=== PATIENT | female | born 1970 ===

== ENCOUNTER 2018-02-01 11:46 | Observation (INO) | payer OTHER, SELFPAY ==
[2018-02-01 12:30] VITALS: O2SAT 100
[2018-02-01 14:25] LABS: VENOUS BLOOD GAS BASE EXCESS 1.6 mmol/L (0.0-2.0); VENOUS BLOOD GAS PCO2 43 mmHg (40-60); VENOUS BLOOD GAS PO2 14 mm/Hg (30-55)
[2018-02-01 14:30] LABS: BASO # 0.1 K/uL (0.0-0.2); BASO % 1.1 % (0.0-2.0); EOS % 0.5 % (0.0-4.0); HEMOGLOBIN 8.3 g/dL (12.0-16.0); LYMPH # 1.9 K/uL (1.0-4.3); LYMPH % 30.6 % (20.0-40.0); MEAN CELL VOLUME 56.4 fl (81.0-99.0); MEAN CORPUSCULAR HEMOGLOBIN 17.4 pg (27.0-31.0); MEAN CORPUSCULAR HGB CONC 30.9 g/dL (33.0-37.0); MEAN PLATELET VOLUME 8.7 fl (7.2-11.7); MONO # 0.3 K/uL (0.0-0.8); MONO % 5.3 % (0.0-10.0); NEUT # 3.9 K/uL (1.8-7.0); NEUT % 62.5 % (50.0-75.0); NRBC % 0.1 % (0.0-0.0); RBC 4.78 Mil/uL (3.80-5.20); RED CELL DISTRIBUTION WIDTH 21.3 % (11.5-14.5); WHITE BLOOD COUNT 6.2 K/uL (4.8-10.8)
[2018-02-01 14:44] LABS: BLOOD UREA NITROGEN 9 mg/dl (7-17); CALCIUM 9.1 mg/dL (8.4-10.2); GFR NON-AFRICAN AMERICAN > 60
--- NOTE | 2018-02-01 14:44 | ED PDOC ---
HPI: General Adult Time Seen by Provider: 02/01/18 13:26 Chief Complaint (Nursing): Abnormal Labs Chief Complaint (Provider): Abnormal Labs History Per: Patient History/Exam Limitations: no limitations Onset/Duration Of Symptoms: Hrs Current Symptoms Are (Timing): Still Present Additional Complaint(s): 47 y/o female with no significant PMHx presents to the ED for evaluation of abnormal labs. Patient reports of seeing her PMD for multiple episodes of dizziness. Patient states she had labs drawn and was called in for being Anemic. At this time, patient is complaining of dizziness and weakness. Denies perineum bleeding or any other source, anemia or a blood transfusion in the past and increased shortness of breath with extended exertion. PMD: Dr. Mami Kauffman ([facility]) LN 01/18/2018 (Normal Period. No irregularity) Past Medical History Reviewed: Historical Data, Nursing Documentation, Vital Signs Vital Signs: Last Vital Signs Temp 97.9 F 02/01/18 18:51 Pulse 77 02/01/18 18:51 Resp 18 02/01/18 18:51 BP 129/79 02/01/18 18:51 Pulse Ox 100 02/01/18 17:51 - Medical History PMH: No Chronic Diseases Denies: Chronic Kidney Disease - Surgical History Surgical History: No Surg Hx - Family History Family History: States: Unknown Family Hx - Home Medications Home Medications: Ambulatory Orders Medication Instructions Recorded No Known Home Med 02/01/18 - Allergies Allergies/Adverse Reactions: Allergies Allergy/AdvReac Type Severity Reaction Status Date / Time No Known Allergies Allergy Verified 02/01/18 12:26 Review of Systems ROS Statement: Except As Marked, All Systems Reviewed And Found Negative Constitutional: Positive for: Other (Abnormal Lab Evaluation) Neurological: Positive for: Weakness, Dizziness Physical Exam - Reviewed Nursing Documentation Reviewed: Yes Vital Signs Reviewed: Yes - Physical Exam Appears: Positive for: Well, No Acute Distress (on stretcher) Skin: Negative for: Cyanosis Eye Exam: Positive for: Other (Conjunctival Pallor) ENT: Positive for: Other (Lips pale) Neck: Positive for: Normal (No lymphadenopathy) Cardiovascular/Chest: Positive for: Regular Rate, Rhythm. Negative for: Murmur , Tachycardia Respiratory: Positive for: Normal Breath Sounds. Negative for: Respiratory Distress Pulses-Radial (L): 2+ Pulses-Radial (R): 2+ Gastrointestinal/Abdominal: Positive for: Normal Exam, Soft. Negative for: Tenderness Extremity: Positive for: Normal ROM. Negative for: Pedal Edema Neurologic/Psych: Positive for: Alert, Oriented (x3) - Laboratory Results Result Diagrams: 02/01/18 13:15 02/01/18 13:15 - ECG O2 Sat by Pulse Oximetry: 100 (RA) Pulse Ox Interpretation: Normal Medical Decision Making Medical Decision Making: Time: 1315 A/P: Continue workup for anemia. -- If levels are dropping compared to previous workup will start transfusion and will admit for continuing labs. -- If increasing, will consult with PMD for possible discharge home. -- BMP -- CBC with Differentials -- PTT -- Prothrombin Time -- Each possibility discussed with patient who is in agreement with each option. Daughter is at bedside. Patient appears comfortable. Time: 1446 Plan: -- Urinalysis -- CXR Portable -- EKG -- Type and Screen Scribe Attestation: Documented by Harpreet Corona acting as a scribe for Claudia Draper MD. Provider Scribe Attestation: All medical record entries made by the Scribe were at my direction and personally dictated by me. I have reviewed the chart and agree that the record accurately reflects my personal performance of the history, physical exam, medical decision making, and the department course for this patient. I have also personally directed, reviewed, and agree with the discharge instructions and disposition. Disposition - Clinical Impression Clinical Impression: Anemia - Disposition Disposition Time: 16:00 Condition: FAIR
[2018-02-01 14:46] LABS: INR 1.1; PROTHROMBIN TIME 11.9 Seconds (9.8-13.1)
[2018-02-01 15:05] LABS: SQUAMOUS EPITHIAL 1 /hpf (0-5); URINE BILIRUBIN NEGATIVE (NEGATIVE); URINE BLOOD NEGATIVE (NEGATIVE); URINE CLARITY CLEAR (Clear); URINE COLOR STRAW (YELLOW); URINE GLUCOSE (UA) NEG (Normal); URINE LEUKOCYTE ESTERASE NEG Leu/uL (Negative); URINE PROTEIN NEGATIVE (NEGATIVE); URINE UROBILINOGEN 0.2-1.0 mg/dL (0.2-1.0)
--- NOTE | 2018-02-01 15:21 | RAD ---
Date of service: 02/01/2018 HISTORY: possible admission COMPARISON: No prior. FINDINGS: LUNGS: No active pulmonary disease. PLEURA: No significant pleural effusion identified, no pneumothorax apparent. CARDIOVASCULAR: No radiographic findings to suggest acute or significant cardiovascular disease. OSSEOUS STRUCTURES: No significant abnormalities. VISUALIZED UPPER ABDOMEN: Normal. OTHER FINDINGS: None. IMPRESSION: No active disease.
--- NOTE | 2018-02-01 16:46 | CP.PCM.HP ---
History of Present Illness - History of Present Illness History of Present Illness: This is a 47 year old female with pmh of anemia, denies any other medical problems, who had been seeing her PMD for multiple episodes of lightheadedness. She states that the lightheadedness has gotten worse over the past few days. Last Hg at the office was reportedly 7.9. Today she again went to the clinic due to the lightheadedness and was told to come to the ED due to anemia. Here in the ED she was found to have a Hg level of 8.3. When asked about her periods , she says that they were normal; however she then related that her period lasts about 8 days (this has been true her whole life). She relates that she soaks 3 or more pads over the first two days and then soaks 2 pads per day over the next 6 days. She has recently had occult blood test at the clinic which was negative.Patient denies chest pain, shortness of breath, fevers, chills, nausea, vomiting, diarrhea, headache. All of the patient's questions were answered at the bedside. Present on Admission - Present on Admission Any Indicators Present on Admission: No History of DVT/PE: No History of Uncontrolled Diabetes: No Review of Systems - Review of Systems Review of Systems: A 12 point review of systems was conducted and found to be negative other than in HPI. Past Patient History - Infectious Disease Hx of Infectious Diseases: None - Past Medical History & Family History Past Medical History?: No Past Family History: Reviewed and not pertinent (denies any anemia in her family ) - Past Social History Smoking Status: Never Smoked Alcohol: None Home Situation {Lives}: With Family - CARDIAC Hx Cardiac Disorders: No - PULMONARY Hx Respiratory Disorders: No - NEUROLOGICAL Hx Neurological Disorder: No - HEENT Hx HEENT Problems: No - RENAL Hx Chronic Kidney Disease: No - ENDOCRINE/METABOLIC Hx Endocrine Disorders: No - HEMATOLOGICAL/ONCOLOGICAL Hx Blood Disorders: No - INTEGUMENTARY Hx Dermatological Problems: No - MUSCULOSKELETAL/RHEUMATOLOGICAL Hx Musculoskeletal Disorders: No - GASTROINTESTINAL Hx Gastrointestinal Disorders: No - GENITOURINARY/GYNECOLOGICAL Hx Genitourinary Disorders: No - PSYCHIATRIC Hx Psychophysiologic Disorder: No Hx Substance Use: No - SURGICAL HISTORY Hx Surgeries: No - ANESTHESIA Hx Anesthesia: No Meds Allergies/Adverse Reactions: Allergies Allergy/AdvReac Type Severity Reaction Status Date / Time No Known Allergies Allergy Verified 02/01/18 12:26 Physical Exam - Additional Findings Additional findings: Physical exam: Constitutional- cooperative, awake, alert Head- NCAT, PERRL Eye- PERRL, EOMI ENT- normal exam, MMM. Neck- normal inspection, supple, no JVD Respiratory- CTAB, no wheezes rales rhonchi Cardiovascular- RRR, +S1, +S2 no MRG GI/Abdominal- normal bowel sounds, soft, no mass, no hsm Skin- warm, dry + pallor Extremities Exam- normal capillary refill, normal inspection Neurological Exam- alert, awake, oriented Psych- normal mood, normal affect Results - Vital Signs Recent Vital Signs: Last Vital Signs Temp 98.6 F 02/01/18 16:34 Pulse 95 H 02/01/18 16:34 Resp 20 02/01/18 16:34 BP 108/71 02/01/18 16:34 Pulse Ox 100 02/01/18 16:34 - Labs Result Diagrams: 02/01/18 13:15 02/01/18 13:15 Labs: Laboratory Results - last 24 hr 02/01/18 02/01/18 02/01/18 13:15 13:15 13:15 WBC 6.2 RBC 4.78 Hgb 8.3 L Hct 27.0 L MCV 56.4 L D MCH 17.4 L MCHC 30.9 L RDW 21.3 H Plt Count 320 MPV 8.7 Neut % (Auto) 62.5 Lymph % (Auto) 30.6 [place] % (Auto) 5.3 Eos % (Auto) 0.5 Baso % (Auto) 1.1 Neut # (Auto) 3.9 Lymph # (Auto) 1.9 [place] # (Auto) 0.3 Eos # (Auto) 0.0 Baso # (Auto) 0.1 PT 11.9 INR 1.1 APTT 31.0 pO2 VBG pH VBG pCO2 VBG HCO3 VBG Total CO2 VBG O2 Sat (Calc) VBG Base Excess VBG Potassium Glucose Lactate FiO2 Sodium 141 Potassium 3.9 Chloride 107 Carbon Dioxide 26 Anion Gap 12 BUN 9 Creatinine 0.5 L Est GFR ( Amer) > 60 Est GFR (Non-Af Amer) > 60 Random Glucose 82 Calcium 9.1 Venous Blood Potassium Urine Color Urine Clarity Urine pH Ur Specific [place] Urine Protein Urine Glucose (UA) Urine Ketones Urine Blood Urine Nitrate Urine Bilirubin Urine Urobilinogen Ur Leukocyte Esterase Urine RBC (Auto) Urine Microscopic WBC Ur Squamous Epith Cells Blood Type Blood Type Confirm Antibody Screen Crossmatch BBK History Checked 02/01/18 02/01/18 02/01/18 14:12 14:40 14:46 WBC RBC Hgb Hct MCV MCH MCHC RDW Plt Count MPV Neut % (Auto) Lymph % (Auto) [place] % (Auto) Eos % (Auto) Baso % (Auto) Neut # (Auto) Lymph # (Auto) [place] # (Auto) Eos # (Auto) Baso # (Auto) PT INR APTT pO2 14 L VBG pH 7.40 VBG pCO2 43 VBG HCO3 25.2 VBG Total CO2 27.9 VBG O2 Sat (Calc) 36.9 L VBG Base Excess 1.6 VBG Potassium 3.8 Glucose 91 Lactate 0.9 FiO2 21.0 Sodium 138.0 Potassium Chloride 110.0 H Carbon Dioxide Anion Gap BUN Creatinine Est GFR ( Amer) Est GFR (Non-Af Amer) Random Glucose Calcium Venous Blood Potassium 3.8 Urine Color Straw Urine Clarity Clear Urine pH 7.0 Ur Specific [place] 1.008 Urine Protein Negative Urine Glucose (UA) Neg Urine Ketones Negative Urine Blood Negative Urine Nitrate Negative Urine Bilirubin Negative Urine Urobilinogen 0.2-1.0 Ur Leukocyte Esterase Neg Urine RBC (Auto) 1 Urine Microscopic WBC 1 Ur Squamous Epith Cells 1 Blood Type O POSITIVE Blood Type Confirm Antibody Screen Negative Crossmatch See Detail BBK History Checked No verified bt 02/01/18 15:10 WBC RBC Hgb Hct MCV MCH MCHC RDW Plt Count MPV Neut % (Auto) Lymph % (Auto) [place] % (Auto) Eos % (Auto) Baso % (Auto) Neut # (Auto) Lymph # (Auto) [place] # (Auto) Eos # (Auto) Baso # (Auto) PT INR APTT pO2 VBG pH VBG pCO2 VBG HCO3 VBG Total CO2 VBG O2 Sat (Calc) VBG Base Excess VBG Potassium Glucose Lactate FiO2 Sodium Potassium Chloride Carbon Dioxide Anion Gap BUN Creatinine Est GFR ( Amer) Est GFR (Non-Af Amer) Random Glucose Calcium Venous Blood Potassium Urine Color Urine Clarity Urine pH Ur Specific [place] Urine Protein Urine Glucose (UA) Urine Ketones Urine Blood Urine Nitrate Urine Bilirubin Urine Urobilinogen Ur Leukocyte Esterase Urine RBC (Auto) Urine Microscopic WBC Ur Squamous Epith Cells Blood Type Blood Type Confirm O POSITIVE Antibody Screen Crossmatch BBK History Checked Assessment & Plan - Assessment and Plan (Free Text) Plan: This is a 47 year old female with pmh of anemia, denies any other medical problems, who had been seeing her PMD for multiple episodes of lightheadedness. She states that the lightheadedness has gotten worse over the past few days. Last Hg at the office was reportedly 7.9. Today she again went to the clinic due to the lightheadedness and was told to come to the ED due to anemia. Here in the ED she was found to have a Hg level of 8.3. When asked about her periods , she says that they were normal; however she then related that her period lasts about 8 days (this has been true her whole life). She relates that she soaks 3 or more pads over the first two days and then soaks 2 pads per day over the next 6 days. She has recently had occult blood test at the clinic which was negative. The patient is being observed overnight for acute on chronic symptomatic anemia and for 1 unit PRBC to be transfused overnight, with likely discharge in AM. PMD: Dr. Mami Kauffman ([facility]) [facility] 01/18/2018 ( 1) Symptomatic microcytic anemia (likely iron deficiency anemia, most likely from menstrual bleeding given hx) - Med/surg observation - repeat occult blood - transfuse 1 unit and repeat cbc tomorrow AM - monitor vitals - Check iron, TIBC, should be discharged with supplementation if low 2) DVT prophylaxis - SCDs
[2018-02-01 16:53] LABS: IRON 14 ug/dL (37-170)
[2018-02-01 17:02] LABS: % IRON SATURATION 4 % (20-55); TOTAL IRON BINDING CAPACITY 410 ug/dL (250-450)
--- NOTE | 2018-02-01 18:57 | CARD ---
APPROVED REPORT Date of service: 02/01/2018 <Conclusion> Normal sinus rhythm Normal ECG
[2018-02-01 21:23] LABS: FOLATE 12.6 ng/mL
[2018-02-02 01:34] VITALS: RESP 19
[2018-02-02 06:27] LABS: HEMOGLOBIN 9.2 g/dL (12.0-16.0); MEAN CELL VOLUME 61.2 fl (81.0-99.0); MEAN CORPUSCULAR HEMOGLOBIN 19.2 pg (27.0-31.0); MEAN CORPUSCULAR HGB CONC 31.5 g/dL (33.0-37.0); RBC 4.77 Mil/uL (3.80-5.20); RED CELL DISTRIBUTION WIDTH 25.5 % (11.5-14.5); WHITE BLOOD COUNT 7.5 K/uL (4.8-10.8)
[2018-02-02 08:16] VITALS: BP 123/76; PULSE 83; TEMP 98
[2018-02-02 09:57] LABS: MCH 17.3 pg (27.0-33.0)
--- NOTE | 2018-02-02 10:45 | CP.PCM.DIS ---
Provider - Provider Date of Admission: 02/01/18 16:05 Attending physician: Lazaro Garcia DO Time Spent in preparation of Discharge (in minutes): 25 Diagnosis - Discharge Diagnosis (1) Anemia Status: Chronic (2) Lightheadedness Status: Resolved (3) Symptomatic anemia Status: Resolved Hospital Course - Lab Results Lab Results: Most Recent Lab Values WBC 7.5 K/uL (4.8-10.8) 02/02/18 05:35 RBC 4.77 Mil/uL (3.80-5.20) 02/02/18 05:35 Hgb 9.2 g/dL (12.0-16.0) L 02/02/18 05:35 Hct 29.2 % (34.0-47.0) L 02/02/18 05:35 MCV 61.2 fl (81.0-99.0) L D 02/02/18 05:35 MCH 19.2 pg (27.0-31.0) L 02/02/18 05:35 MCHC 31.5 g/dL (33.0-37.0) L 02/02/18 05:35 RDW 25.5 % (11.5-14.5) H 02/02/18 05:35 Plt Count 285 K/uL (130-400) 02/02/18 05:35 MPV 8.7 fl (7.2-11.7) 02/01/18 13:15 Neut % (Auto) 62.5 % (50.0-75.0) 02/01/18 13:15 Lymph % (Auto) 30.6 % (20.0-40.0) 02/01/18 13:15 [place] % (Auto) 5.3 % (0.0-10.0) 02/01/18 13:15 Eos % (Auto) 0.5 % (0.0-4.0) 02/01/18 13:15 Baso % (Auto) 1.1 % (0.0-2.0) 02/01/18 13:15 Neut # (Auto) 3.9 K/uL (1.8-7.0) 02/01/18 13:15 Lymph # (Auto) 1.9 K/uL (1.0-4.3) 02/01/18 13:15 [place] # (Auto) 0.3 K/uL (0.0-0.8) 02/01/18 13:15 Eos # (Auto) 0.0 K/uL (0.0-0.7) 02/01/18 13:15 Baso # (Auto) 0.1 K/uL (0.0-0.2) 02/01/18 13:15 Hemoglobinopathy Red Blood Count 4.75 Mill/mcL (3.80-5.10) 02/01/18 18:11 Hemoglobinopathy Hct 28.0 % (35.0-45.0) L 02/01/18 18:11 Hemoglobinopathy Hgb 8.2 g/dL (11.7-15.5) L 02/01/18 18:11 Hemoglobinopathy MCV 59.0 fL (80.0-100.0) L 02/01/18 18:11 Hemoglobinopathy MCH 17.3 pg (27.0-33.0) L 02/01/18 18:11 Hemoglobinopathy RDW 21.8 % (11.0-15.0) H 02/01/18 18:11 PT 11.9 Seconds (9.8-13.1) 02/01/18 13:15 INR 1.1 02/01/18 13:15 APTT 31.0 Seconds (25.6-37.1) 02/01/18 13:15 pO2 14 mm/Hg (30-55) L 02/01/18 14:12 VBG pH 7.40 (7.32-7.43) 02/01/18 14:12 VBG pCO2 43 mmHg (40-60) 02/01/18 14:12 VBG HCO3 25.2 mmol/L 02/01/18 14:12 VBG Total CO2 27.9 mmol/L (22-28) 02/01/18 14:12 VBG O2 Sat (Calc) 36.9 % (40-65) L 02/01/18 14:12 VBG Base Excess 1.6 mmol/L (0.0-2.0) 02/01/18 14:12 VBG Potassium 3.8 mmol/L (3.6-5.2) 02/01/18 14:12 Sodium 138.0 mmol/L (132-148) 02/01/18 14:12 Chloride 110.0 mmol/L (98-107) H 02/01/18 14:12 Glucose 91 mg/dL (65-105) 02/01/18 14:12 Lactate 0.9 mmol/L (0.7-2.1) 02/01/18 14:12 FiO2 21.0 % 02/01/18 14:12 Sodium 141 mmol/l (132-148) 02/01/18 13:15 Potassium 3.9 MMOL/L (3.6-5.0) 02/01/18 13:15 Chloride 107 mmol/L (98-107) 02/01/18 13:15 Carbon Dioxide 26 mmol/L (22-30) 02/01/18 13:15 Anion Gap 12 (10-20) 02/01/18 13:15 BUN 9 mg/dl (7-17) 02/01/18 13:15 Creatinine 0.5 mg/dl (0.7-1.2) L 02/01/18 13:15 Est GFR ( Amer) > 60 02/01/18 13:15 Est GFR (Non-Af Amer) > 60 02/01/18 13:15 Random Glucose 82 mg/dL (65-105) 02/01/18 13:15 Calcium 9.1 mg/dL (8.4-10.2) 02/01/18 13:15 Iron 14 ug/dL (37-170) L 02/01/18 16:37 TIBC 410 ug/dL (250-450) 02/01/18 16:37 % Saturation 4 % (20-55) L 02/01/18 16:37 Vitamin B12 441 pg/mL (239-931) 02/01/18 16:46 Folate 12.6 ng/mL 02/01/18 16:46 Venous Blood Potassium 3.8 mmol/L (3.6-5.2) 02/01/18 14:12 Urine Color Straw (YELLOW) 02/01/18 14:46 Urine Clarity Clear (Clear) 02/01/18 14:46 Urine pH 7.0 (5.0-8.0) 02/01/18 14:46 Ur Specific [place] 1.008 (1.003-1.030) 02/01/18 14:46 Urine Protein Negative mg/dL (NEGATIVE) 02/01/18 14:46 Urine Glucose (UA) Neg mg/dL (Normal) 02/01/18 14:46 Urine Ketones Negative mg/dL (NEGATIVE) 02/01/18 14:46 Urine Blood Negative (NEGATIVE) 02/01/18 14:46 Urine Nitrate Negative (NEGATIVE) 02/01/18 14:46 Urine Bilirubin Negative (NEGATIVE) 02/01/18 14:46 Urine Urobilinogen 0.2-1.0 mg/dL (0.2-1.0) 02/01/18 14:46 Ur Leukocyte Esterase Neg Yael/uL (Negative) 02/01/18 14:46 Urine RBC (Auto) 1 /hpf (0-3) 02/01/18 14:46 Urine Microscopic WBC 1 /hpf (0-5) 02/01/18 14:46 Ur Squamous Epith Cells 1 /hpf (0-5) 02/01/18 14:46 Stool Occult Blood Negative (NEGATIVE) 02/01/18 16:45 Blood Type O POSITIVE 02/01/18 14:40 Blood Type Confirm O POSITIVE 02/01/18 15:10 Antibody Screen Negative 02/01/18 14:40 Crossmatch See Detail 02/01/18 14:40 BBK History Checked No verified bt 02/01/18 14:40 - Hospital Course Hospital Course: 47 year old female with pmh of anemia, denies any other medical problems, who had been seeing her PMD for multiple episodes of lightheadedness. She states that the lightheadedness has gotten worse over the past few days. Last Hg at the office was reportedly 7.9. She again went to the clinic due to the lightheadedness and was told to come to the ED yesterday due to anemia. Here in the ED she was found to have a Hg level of 8.3. When asked about her periods, she says that they were normal; however she then related that her period lasts about 8 days (this has been true her whole life). She relates that she soaks 3 or more pads over the first 3 days and then soaks 2 pads per day over the next 5 days. LMP 01/18/18. She has recently had occult blood test at the clinic which was negative. Patient was admitted for symptomatic anemia. She received 1 unit of PRBC and 1 dose of 100 mg IV venofar. This morning, patient's H&H was 9.2/29.2. Patient received additional one dose of IV venofar 100 mg this morning. FOBT was negative. Iron studies showed iron level of iron 14, TIBC 410, %saturation 4. Currently, patient denies any lightheadedness, dizziness, chest pain, dypsnea or blurry vision. Patient is tolerating po and ambulating w/o dizziness. Patient is medically stable to discharge home. Patient has an appointment with PMD on 02/09/18. Advised to follow up with [employer] and substance abuse technician for further work up of anemia. Discharge Exam - Head Exam Head Exam: NORMAL INSPECTION, NORMOCEPHALIC - Eye Exam Eye Exam: EOMI, Normal appearance - ENT Exam ENT Exam: Mucous Membranes Moist - Respiratory Exam Respiratory Exam: Clear to PA & Lateral, NORMAL BREATHING PATTERN. absent: Rales, Rhonchi, Wheezes - Cardiovascular Exam Cardiovascular Exam: REGULAR RHYTHM, RRR, +S1, +S2 - GI/Abdominal Exam GI & Abdominal Exam: Normal Bowel Sounds. absent: Soft, Tenderness - Extremities Exam Extremities exam: normal capillary refill, normal inspection, pedal pulses present - Neurological Exam Neurological exam: Alert, Normal Gait, Oriented x3 - Psychiatric Exam Psychiatric exam: Normal Affect, Normal Mood - Skin Skin Exam: Normal Color, Warm Discharge Plan - Discharge Medications Prescriptions: Docusate Sodium [Colace] 100 mg PO DAILY PRN #30 capsule PRN Reason: Constipation Ferrous Sulfate [Feosol] 325 mg PO BID #60 tab - Follow Up Plan Condition: FAIR Disposition: HOME/ ROUTINE Instructions: Anemia Caused by Low Iron, Adult (DC) Additional Instructions: Follow up with your PMD 1 week. Follow up with [facility] [facility] and substance abuse technician. Referrals: [facility] [Outside] Mami Joel APN [Family Provider] -
[2018-02-03 05:03] LABS: HEMOGLOBIN A 97.1 Percent (>96.0); HEMOGLOBIN A2 1.9 Percent (1.8-3.5)
== END 2018-02-02 14:11 | disposition home or self-care (01) ==
LOC: H.ER 11:46 → H.ERHOLD 16:05 → INTOOBSV 16:05 → H.MEDSURG1 17:13
PROVIDERS: ADMIT Internal Medicine; ATTEND Internal Medicine
DX: D50.9 Iron deficiency anemia, unspecified (principal)
CPT/HCPCS: 36415; 36430; 71045; 80048; 81003; 81025; 82607; 82746; 82803; 83021; 83540; 83550; 85014; 85018; 85025; 85027; 85041; 85610; 85730; 86850; 86900; 86920; 93005; 99283; G0328; G0378; J1756; J2405; P9051